=== PATIENT | female | born 1990 | race Two or more races ===

== ENCOUNTER 2022-10-07 13:07 | Emergency (ER) | payer MEDICAID, OTHER ==
[~2022-10-07] VITALS: Ht 162.6 cm; Wt 100.0 kg
[2022-10-07 14:07] LABS: Basophils # (auto) 0 10 ^3/uL (0-0.2); Basophils % (auto) 0.2 % (0.0-2.0); Eosinophils # (auto) 0 10 ^3/uL (0-0.8); Eosinophils % (auto) 0.4 % (0.0-7.0); Hematocrit 38.1 % (36.0-46.0); Lymphocytes # (auto) 0.5 10 ^3/uL (0.4-5.4); Lymphocytes % (auto) 13.2 % (10.0-50.0); Mean Corpuscular Hemoglobin 29.5 pg (28.0-32.0); Mean Corpuscular Hgb Conc. 34.1 g/dL (32.0-36.0); Mean Corpuscular Volume 86.7 fL (80.0-100.0); Monocytes # (auto) 0 10 ^3/uL (0-1.3); Monocytes % (auto) 0.4 % (0.0-12.0); Neutrophils # (auto) 3.3 10 ^3/uL (1.6-8.6); Neutrophils % (auto) 85.8 % (37.0-80.0); Nucleated Red Blood Cells % 0.1 %; Red Cell Distribution Width 14.8 % (11.8-14.3); White Blood Cell 3.8 10^3/uL (4.4-10.8)
[2022-10-07] MEDS: HYDROcodone-ACET 10/325MG TAB PO ONE ×2 (14:57→15:04)
[2022-10-07] MEDS ORDERED: KETOROLAC TROMETH 60MG/2ML VIAL IM ONE (15:00)
[2022-10-07 15:19] LABS: Albumin 3.7 g/dL (3.4-5.0); Calcium 8.3 mg/dL (8.5-10.1); Potassium 3.6 mmol/L (3.5-5.1)
[2022-10-07 15:22] LABS: BUN/Creatinine Ratio 11.7 (10.0-20.0)
[2022-10-07 15:25] LABS: Bilirubin, Total 0.5 mg/dL (0.2-1.0); Total Protein 7.2 g/dL (6.4-8.2)
[2022-10-07 15:44] LABS: COVID19 ANTIGEN SOFIA FIA NEGATIVE (NEGATIVE)
[2022-10-07] MEDS ORDERED: cefTRIAXone SOD 1,000 MG VL IM ONE (17:15)
[2022-10-07] MEDS ORDERED: NITR-87 PO (17:17)
[2022-10-07] MEDS ORDERED: cefTRIAXone 1GM/50ML D5W 50 ML IV ONE (17:30)
[2022-10-07] MEDS ORDERED: SODIUM CHLORIDE 0.9% 1,000 ML IV ONE ×2 (17:30→17:45)
[2022-10-07 19:41] VITALS: BP 101/60; PULSE 88; RESP 18; TEMP 98.8; O2SAT 99
== END 2022-10-07 19:42 | disposition home or self-care (01) ==
LOC: EDBD 13:07 → ER 13:07
DX: N39.0 Urinary tract infection, site not specified (principal); R10.33 Periumbilical pain; R10.2 Pelvic and perineal pain; Z90.49 Acquired absence of other specified parts of digestive tract; Z20.822 Contact with and (suspected) exposure to COVID-19
CPT/HCPCS: 36415; 70450; 71045; 74176; 80053; 84702; 85025; 87426; 93005; 96365; 99285; J0696; J1885; J7030

== ENCOUNTER 2023-11-04 01:02 | Emergency (ER) | payer MEDICAID ==
[~2023-11-04 01:02] MED LIST: NITR-87 PO
== END 2023-11-04 01:09 | disposition left against medical advice (07) ==
LOC: ER 01:02
DX: R06.02 Shortness of breath (principal); Z53.21 Procedure and treatment not carried out due to patient leaving prior to being seen by health care provider